=== PATIENT | female | born 2000 | race Hispanic/Latino ===

== ENCOUNTER 2018-03-24 13:01 | Emergency (ER) | payer SELFPAY ==
[2018-03-24] MEDS ORDERED: PANTOPRAZOLE 40 MG INJ ONE (14:01)
[2018-03-24 14:40] LABS: Absolute Lymphocytes (CBC) 1.6 K/uL (0.7-4.9); Absolute Monocytes 0.6 K/uL (0.1-1.3); Absolute Neutrophil 4.2 K/uL (1.8-8.0); Basophils % 0.4 % (0-1.3); Eosinophils % 10.4 % (0-4.4); Hematocrit 37.3 % (36.0-45.0); MCH 29.8 pg (27.0-35.0); MCV 87.2 fL (80-100); MPV 9.5 fL (7.6-11.3); Monocytes % 8.8 % (3.3-12.3); RBC Red Blood Cell Count 4.28 M/uL (3.86-4.86)
[2018-03-24 14:58] LABS: ALT/SGPT 16 U/L (12-78); AST/SGOT 9 U/L (15-37); Albumin 3.6 g/dL (3.4-5.0); Alkaline Phosphatase 71 U/L (45-117); BUN Blood Urea Nitrogen 11 mg/dL (7-18); Bicarbonate 26 mmol/L (21-32); Bilirubin Direct < 0.1 mg/dL (0-0.2); Bilirubin Total 0.3 mg/dL (0.2-1.0); Glucose Level 81 mg/dL (74-106); Lipase 227 U/L (73-393); Potassium 4.1 mmol/L (3.5-5.1); Protein, Total 7.3 g/dL (6.4-8.2); Sodium Level 140 mmol/L (136-145)
--- NOTE | 2018-03-24 15:27 | EDPHYS ---
Physician Documentation [facility] Name: Beverly Daniels Age: 17 yrs Sex: Female : 2000 Arrival Date: 03/24/2018 Time: 13:04 Bed 20 Private MD: ED Physician Jase Olmedo HPI: 03/24 15:25 This 17 yrs old Female presents to ER via Ambulatory with complaints of kb Abdominal Pain. 15:25 The patient presents with abdominal pain in the epigastric area. Onset: The kb symptoms/episode began/occurred 2 month(s) ago. The symptoms do not radiate. Associated signs and symptoms: none. The symptoms are described as intermittent. Modifying factors: The symptoms are alleviated by nothing, the symptoms are aggravated by nothing. Severity of pain: At its worst the pain was moderate in the emergency department the pain is unchanged. The patient has not experienced similar symptoms in the past. The patient has not recently seen a physician. LAST TRIMMER: 13:40 LMP N/A - control method hj Historical: - Allergies: 13:38 No Known Allergies; dm5 - Home Meds: 13:38 None [Active]; dm5 - PMHx: 13:38 None; dm5 - PSHx: 13:38 None; dm5 - Immunization history:: Adult Immunizations up to date. - Social history:: Smoking status: Patient/guardian denies using tobacco, Patient/guardian denies using alcohol. - Ebola Screening: : Patient negative for fever greater than or equal to 101.5 degrees Fahrenheit, and additional compatible Ebola Virus Disease symptoms Patient denies exposure to infectious person Patient denies travel to an Ebola-affected area in the 21 days before illness onset. ROS: 15:25 Constitutional: Negative for fever, chills, and weight loss, Cardiovascular: Negative kb for chest pain, palpitations, and edema, Respiratory: Negative for shortness of breath, cough, wheezing, and pleuritic chest pain, Back: Negative for injury and pain, : Negative for injury, bleeding, discharge, and swelling, MS/Extremity: Negative for injury and deformity, Skin: Negative for injury, rash, and discoloration, Neuro: Negative for headache, weakness, numbness, tingling, and seizure. 15:25 Abdomen/GI: Positive for abdominal pain, Negative for nausea, vomiting, and diarrhea. Exam: 15:25 Constitutional: This is a well developed, well nourished patient who is awake, alert, kb and in no acute distress. Head/Face: Normocephalic, atraumatic. Chest/axilla: Normal chest wall appearance and motion. Nontender with no deformity. No lesions are appreciated. Cardiovascular: Regular rate and rhythm with a normal S1 and S2. No gallops, murmurs, or rubs. Normal PMI, no JVD. No pulse deficits. Respiratory: Lungs have equal breath sounds bilaterally, clear to auscultation and percussion. No rales, rhonchi or wheezes noted. No increased work of breathing, no retractions or nasal flaring. Abdomen/GI: Soft, non-tender, with normal bowel sounds. No distension or tympany. No guarding or rebound. No evidence of tenderness throughout. Back: No spinal tenderness. No costovertebral tenderness. Full range of motion. Skin: Warm, dry with normal turgor. Normal color with no rashes, no lesions, and no evidence of cellulitis. MS/ Extremity: Pulses equal, no cyanosis. Neurovascular intact. Full, normal range of motion. Neuro: Awake and alert, GCS 15, oriented to person, place, time, and situation. Cranial nerves II-XII grossly intact. Motor strength 5/5 in all extremities. Sensory grossly intact. Cerebellar exam normal. Normal gait. Vital Signs: 13:40 BP 100 / 54; Pulse 84; Resp 18; Temp 97.8(TE); Pulse Ox 99% on R/A; hj 14:58 BP 109 / 67; Pulse 85; Resp 18; Pulse Ox 100% on R/A; hj 15:35 BP 105 / 73; Pulse 82; Resp 18; Pulse Ox 100% on R/A; hj MDM: 13:36 Patient medically screened. kb 15:24 Data reviewed: vital signs, nurses notes. Data interpreted: Pulse oximetry: on room air kb is 100 %. Interpretation: normal. Counseling: I had a detailed discussion with the patient and/or guardian regarding: the historical points, exam findings, and any diagnostic results supporting the discharge/admit diagnosis, lab results, the need for outpatient follow up, a family practitioner, to return to the emergency department if symptoms worsen or persist or if there are any questions or concerns that arise at home. 03/24 13:52 Order name: Basic Metabolic Panel; Complete Time: 14:59 kb 03/24 13:52 Order name: CBC with Diff; Complete Time: 14:56 kb 03/24 13:52 Order name: Hepatic Function; Complete Time: 14:59 kb 03/24 13:53 Order name: Lipase; Complete Time: 14:59 kb 03/24 13:53 Order name: IV Saline Lock; Complete Time: 14:02 kb 03/24 13:53 Order name: Labs collected and sent; Complete Time: 14:02 kb Administered Medications: 14:01 Drug: ProTONIX 40 mg Route: IVP; Site: right antecubital; hj 15:36 Follow up: Response: No adverse reaction hj Disposition: 16:11 Co-signature as Attending Physician, Jase Olmedo MD I agree with the assessment and viviana plan of care. Disposition: 03/24/18 15:27 Discharged to Home. Impression: Upper abdominal pain, unspecified. - Condition is Stable. - Discharge Instructions: Gastroesophageal Reflux Disease, Adult, Abdominal Pain, Adult, [id number]. - Prescriptions for Bentyl 20 mg Oral Tablet - take 1 tablet by ORAL route every 6 hours As needed; 20 tablet. - Medication Reconciliation Form, Thank You Letter, Antibiotic Education, Prescription Opioid Use form. - Follow up: Emergency Department; When: As needed; Reason: Worsening of condition. Follow up: Private Physician; When: 2 - 3 days; Reason: Recheck today's complaints, Continuance of care, Re-evaluation by your physician. Signatures: Dispatcher [employer] [facility] Tori Mathews, TIMBER PACKER-C TIMBER PACKER-Shakila Rios, RN RN Jase Box MD MD cha Joaquin, Henry RN RN hj Corrections: (The following items were deleted from the chart) 15:37 15:27 03/24/2018 15:27 Discharged to Home. Impression: Upper abdominal pain, hj unspecified. Condition is Stable. Forms are Medication Reconciliation Form, Thank You Letter, Antibiotic Education, Prescription Opioid Use. Follow up: Emergency Department; When: As needed; Reason: Worsening of condition. Follow up: Private Physician; When: 2 - 3 days; Reason: Recheck today's complaints, Continuance of care, Re-evaluation by your physician. kb
--- NOTE | 2018-03-24 15:27 | ER ---
Nurse's Notes [facility] Name: Beverly Daniels Age: 17 yrs Sex: Female : 2000 Arrival Date: 03/24/2018 Time: 13:04 Bed 20 Private MD: Diagnosis: Upper abdominal pain, unspecified Presentation: 03/24 13:37 Presenting complaint: Patient states: upper abdominal pain (epigastric) x 2 weeks rated dm5 at 9/10. Pt states that she has taken pain pills (ibuprofen) but it doesn't dull the pain. Transition of care: patient was not received from another setting of care. Onset of symptoms was March 10, 2018. Risk Assessment: Do you want to hurt yourself or someone else? Patient reports no desire to harm self or others. Initial Sepsis Screen: Does the patient meet any 2 criteria? No. Patient's initial sepsis screen is negative. Does the patient have a suspected source of infection? No. Patient's initial sepsis screen is negative. Care prior to arrival: None. 13:37 Method Of Arrival: Ambulatory dm5 13:37 Acuity: BHUPINDER 3 dm5 SUPERVISOR GRAPHITE: 13:40 LMP N/A - control method hj Historical: - Allergies: 13:38 No Known Allergies; dm5 - Home Meds: 13:38 None [Active]; dm5 - PMHx: 13:38 None; dm5 - PSHx: 13:38 None; dm5 - Immunization history:: Adult Immunizations up to date. - Social history:: Smoking status: Patient/guardian denies using tobacco, Patient/guardian denies using alcohol. - Ebola Screening: : Patient negative for fever greater than or equal to 101.5 degrees Fahrenheit, and additional compatible Ebola Virus Disease symptoms Patient denies exposure to infectious person Patient denies travel to an Ebola-affected area in the 21 days before illness onset. Screenin:40 Abuse screen: Denies threats or abuse. Denies injuries from another. Nutritional hj screening: No deficits noted. Tuberculosis screening: No symptoms or risk factors identified. Fall Risk None identified. Assessment: 13:39 General: Appears in no apparent distress. uncomfortable, Behavior is calm, cooperative, hj appropriate for age. Pain: Complains of pain in abdomen. Neuro: Level of Consciousness is awake, alert, obeys commands, Oriented to person, place, time, situation, Appropriate for age. Cardiovascular: Capillary refill < 3 seconds Patient's skin is warm and dry. Respiratory: Airway is patent Respiratory effort is even, unlabored, Respiratory pattern is regular, symmetrical. GI: Bowel sounds present X 4 quads. Abd is soft and non tender. : No signs and/or symptoms were reported regarding the genitourinary system. EENT: No signs and/or symptoms were reported regarding the EENT system. Derm: No signs and/or symptoms reported regarding the dermatologic system. Musculoskeletal: No signs and/or symptoms reported regarding the musculoskeletal system. 14:58 Reassessment: Patient and/or family updated on plan of care and expected duration. Pain hj level reassessed. Patient is alert, oriented x 3, equal unlabored respirations, skin warm/dry/pink. awaiting results and POC;. Vital Signs: 13:40 BP 100 / 54; Pulse 84; Resp 18; Temp 97.8(TE); Pulse Ox 99% on R/A; hj 14:58 BP 109 / 67; Pulse 85; Resp 18; Pulse Ox 100% on R/A; hj 15:35 BP 105 / 73; Pulse 82; Resp 18; Pulse Ox 100% on R/A; hj ED Course: 13:04 Patient arrived in ED. mr 13:36 Tori Mathews, OSMAR [facility]. kb 13:36 Jase Olmedo MD is Attending Physician. kb 13:36 Valentín Gustafson, JAGDISH is Primary Nurse. hj 13:38 Triage completed. dm5 13:39 Arm band placed on right wrist. hj 13:52 Patient has correct armband on for positive identification. Placed in gown. Bed in low hj position. Call light in reach. Side rails up X 1. 14:00 Initial lab(s) drawn, by me, sent to lab. Inserted saline lock: 22 gauge in right hj antecubital area, using aseptic technique. Blood collected. 15:34 No provider procedures requiring assistance completed. IV discontinued, intact, hj bleeding controlled, No redness/swelling at site. Pressure dressing applied. Administered Medications: 14:01 Drug: ProTONIX 40 mg Route: IVP; Site: right antecubital; hj 15:36 Follow up: Response: No adverse reaction hj Outcome: 15:27 Discharge ordered by . kb 15:35 Discharged to home ambulatory. hj 15:35 Condition: stable 15:35 Discharge instructions given to patient, Instructed on discharge instructions, follow up and referral plans. medication usage, Demonstrated understanding of instructions, follow-up care, medications, Prescriptions given X 1. 15:37 Patient left the ED. Signatures: Tori Mathews, AUTOMOTIVE QUALITY MANAGER-C GABRIELLE-Shakila Rios RN RN dm5 Tori Cardozo Henry, RN RN
== END 2018-03-24 15:37 | disposition home or self-care (01) ==
LOC: ER 13:01
DX: R10.10 Upper abdominal pain, unspecified (principal)
CPT/HCPCS: 36415; 80048; 80076; 83690; 85025; 96374; 99284; C9113